=== PATIENT | female | born 1955 ===

== ENCOUNTER 2020-10-05 05:04 | Day surgery (SDC) | payer OTHER ==
[~2020-10-05 05:04] MED LIST: LOSARTAN POTASS50 MG PO; METFORMIN HCL500 M3 PO; NORVASC5 MG PO
[2020-10-05] MEDS ORDERED: PERCOCET 5-3251 EACH PO (11:58)
== END 2020-10-05 16:45 | disposition home or self-care (01) ==
LOC: CIR.AMB 05:04
PROVIDERS: ATTEND Surgery
DX: E21.0 Primary hyperparathyroidism (principal); Z20.822 Contact with and (suspected) exposure to COVID-19